=== PATIENT | female | born 1995 | race Caucasian/White ===

== ENCOUNTER → 2021-02-10 11:00 | Outpatient (CLI) | payer OTHER, SELFPAY ==
[2021-02-13 03:07] LABS: Chlamydia By Nucleic Acid AMP Negative (Negative)
[2021-02-13 12:40] LABS: Gonococcus By Nucleic Acid AMP Negative (Negative)
== END ==
PROVIDERS: Visit Provider Obstetrics & Gynecology
DX: Z32.01 Encounter for pregnancy test, result positive (principal)
CPT/HCPCS: 87491; 87591

== ENCOUNTER → 2021-02-16 14:53 | Outpatient (CLI) | payer OTHER, SELFPAY ==
[2021-02-16 15:51] LABS: Color, Urine Yellow (Yellow); Glucose, Dipstick Normal (Normal); Ketone-Dipstick Negative (Negative); Leukocyte Esterase-Dipstick Negative /ul (Negative); Nitrite-Dipstick Negative (Negative); Occult Blood-Urine Negative /ul (Negative); Protein-Dipstick Negative (Negative); Specific Gravity, Urine 1.015 (1.002-1.030); Urine Bilirubin Dipstick Negative (Negative); Urine Clarity Sl. Cloudy (Clear); Urine Urobilinogen Normal (Normal)
[2021-02-16 15:53] LABS: Absolute Lymphocyte Count 1.95 X10^3/uL (0.83-4.51); Absolute Neutrophil Count 7.5 X10^3/uL (2.0-7.7); Basophil# 0.04 X10^3/uL; Basophil% 0.4 % (0-1); Eosinophil# 0.14 X10^3/uL; Eosinophils% 1.4 % (0-5); Hemoglobin 14.1 g/dL (12.0-15.0); Lymphocyte # 1.95 X10^3/ul (0.83-4.51); Lymphocyte % 18.9 % (19-41); Mean Corp Hgb Conc 33.6 g/dL (32-36); Mean Corpuscular Hgb 30.1 pg (27.0-32.0); Mean Corpuscular Volume 89.7 fL (81-99); Mean Platelet Vol. 10.6 fl (6.2-12.0); Monocyte# 0.64 X10^3/uL; Monocyte% 6.2 % (0-10); NRBC Flagged by Analyzer 0 % (0-5); Neutrophil # 7.53 X10^3/uL (2.7-7.7); Neutrophil % 72.9 % (47-70); Platelet Count 214 K/mm3 (150-450); RBC Distribution Width SD 39.2 fl (35.1-43.9); Red Blood Count 4.68 M/mm3 (4.2-5.4); White Blood Count 10.3 K/mm3 (4.4-11.0)
[2021-02-17 10:33] LABS: HIV - WCH Non-Reactive (Nonreactive); Hepatitis B Surface Antigen Non-Reactive (Nonreactive); Hepatitis C Antibody Non-Reactive (Nonreactive); Rubella IgG Reactive (Nonreactive); Syphilis Antibodies Non-reactive
== END ==
PROVIDERS: Visit Provider Obstetrics & Gynecology
DX: Z34.81 Encounter for supervision of other normal pregnancy, first trimester (principal)
CPT/HCPCS: 36415; 81002; 84443; 85025; 86703; 86762; 86780; 86803; 87340

== ENCOUNTER → 2021-08-11 09:30 | Outpatient (CLI) | payer OTHER, SELFPAY | PROVIDERS: Visit Provider Obstetrics & Gynecology | DX: Z36.85 Encounter for antenatal screening for Streptococcus B (principal) | CPT/HCPCS: 87081 ==

== ENCOUNTER 2021-09-07 17:50 | Inpatient (IN) | payer SELFPAY, OTHER ==
[2021-09-07] VITALS (10 sets, daily range): BP systolic 108–129; BP diastolic 62–88; PULSE 63–87; TEMP 35.9–36.3; O2SAT 97–99; BMI 30.4
[2021-09-07 17:30] LABS: ROM Internal Control Test YES-OK TO RESULT pt. (Internal QC); ROM Patient Test POSITIVE (Negative)
[2021-09-07] MEDS: Lactated Ringers 1,000 ML 50 ML IV (18:05)
[2021-09-07 18:19] LABS: Absolute Lymphocyte Count 1.75 X10^3/uL (0.83-4.51); Absolute Neutrophil Count 10.6 X10^3/uL (2.0-7.7); Basophil# 0.03 X10^3/uL; Basophil% 0.2 % (0-1); Eosinophil# 0.13 X10^3/uL; Hematocrit 39.9 % (37-47); Hemoglobin 13.7 g/dL (12.0-15.0); Lymphocyte # 1.75 X10^3/ul (0.83-4.51); Mean Corp Hgb Conc 34.3 g/dL (32-36); Mean Corpuscular Hgb 32.1 pg (27.0-32.0); Mean Corpuscular Volume 93.4 fL (81-99); Mean Platelet Vol. 10.2 fl (6.2-12.0); Monocyte# 0.89 X10^3/uL; Monocyte% 6.6 % (0-10); NRBC Flagged by Analyzer 0 % (0-5); Neutrophil # 10.57 X10^3/uL (2.7-7.7); Neutrophil % 78.9 % (47-70); Platelet Count 259 K/mm3 (150-450); RBC Distribution Width CV 12.4 % (11.6-14.6); RBC Distribution Width SD 42.6 fl (35.1-43.9); Red Blood Count 4.27 M/mm3 (4.2-5.4); White Blood Count 13.4 K/mm3 (4.4-11.0)
--- NOTE | 2021-09-07 20:14 | HP.PCM.OB_ITS ---
History and Physical Date of Admission: 09/07/21 HPI: 26 yo at 40/3w, HARLAN 09/04/21 by LMP consistent with 11w US, admitted for spontaneous rupture of membranes. Patient reports leaking of fluid at 1445 this afternoon. States that contractions are becoming stronger and closer together. Denies vaginal bleeding. Reports movement. Denies headache, vision changes, chest pain, shortness of breath, nausea or vomiting, diarrhea constipation, fevers or chills. complicated by: Prior section at 37 weeks for severe preeclampsia nonreassuring heart tones POLICY SERVICES REPRESENTATIVE History: G1:2018 10w SAB G2: 2019 37w c/s G3: current Medical history: Denies Surgical history: section, umbilical hernia repair Allergies: No known drug allergies Family history: Noncontributory Medications: PNV Social history: Denies tobacco, alcohol, drug use Review of systems: Negative otherwise stated above Physical exam Vitals: Blood pressure 116/71//pulse 63 //temperature 97.1 ?F //oxygen saturation 98% on room air General: Patient is no acute distress standing at bedside HEENT: Normocephalic/atraumatic, PERRLA Cardiorespiratory: No increased effort, regular heart rate Abdomen: Soft, nontender, gravid Extremities: Minimal edema Cervical exam: 2 cm per RN Neurologic: Cranial nerves II through XII grossly intact Musculoskeletal: Movement and strength 5 out of 5 throughout panel: Blood type a positive HIV/hepatitis C/hepatitis B negative/negative/negative Rubella immune GBS negative on 08/11/2021 Gonorrhea/chlamydia negative CBC: WBC 13.4/hemoglobin 13.7/hematocrit 32.1/platelets 259 Assessment/plan: 26 yo at 40/3w, HARLAN 09/04/21 by LMP consistent with 11w US, admitted for spontaneous rupture of membranes. complicated by: Prior section at 37 weeks for severe preeclampsia nonreassuring heart tones * Patient desires trial of labor after section. All risk, benefits, alternatives discussed with patient. Discussed options for section. Discussed risks of surgery including but not limited to: Risk of bleeding to the point transfusion, infection, injury to surrounding tissue including bowel/bladder/major vessels, VTE, ICU admission. Discussed outcomes of vaginal . Discussed risk of uterine rupture which is less than 1% however if this were to happen there are several risks to herself and baby including but not limited to: Risk of hemorrhage, hysterectomy, risk of and neurologic damage. Patient aware and consented. * GBS negative * Expectant management at this time. Will augment with Pitocin if needed. Assessment & Plan Assessment/Plan (1) Spontaneous rupture of membranes: (2) History of section: (3) Desires (vaginal after ) trial:
[2021-09-07] MEDS: Oxytocin 30 units/NS 500 ml 30 UNITS/500 ML IV.SOLN IV (22:06)
[2021-09-08] VITALS (91 sets, daily range): BP systolic 83–124; BP diastolic 47–81; PULSE 54–214; RESP 16; TEMP 36.1–36.5; O2SAT 82–100
[2021-09-08] MEDS: Lactated Ringers 500 ML 999 ML IV ×3 (01:00→05:27)
[2021-09-08] MEDS: fentaNYL-bupivacaine (epidural) 100 ML BAG EPIDURAL ×2 (01:55→06:15)
[2021-09-08] MEDS: Terbutaline 1 MG/ML Vial 0.25 MG SC (03:29)
--- NOTE | 2021-09-08 04:10 | PN_ITS ---
Progress Note Patient seen and examined. Recurrent late decelerations after epidural placement and hypotension - had been given ephendrine and LR bolus. PT on hands and knees. 6 cm per RN. Terbutaline given. Resolution of decelerations. FHR 135/mod harriet/+accel/no decel [place] q4-5 min. Continue expectant management. Will consider restarting pitocin in approximately 1 hour if FHR continues to be reassuring. Discussed possibility of section for intolerance of labor if decelerations recur. All questions answered.
[2021-09-08] MEDS: Lactated Ringers 1,000 ML 200 ML IV (06:06)
[2021-09-08] MEDS: Oxytocin 30 units/NS 500 ml 30 UNITS/500 ML IV.SOLN 334 UNITS IV (12:03)
--- NOTE | 2021-09-08 14:00 | EX.PCM.OBRPT ---
Assessment & Plan (1) (vaginal after ): (2) : Vaginal Delivery Maternal Presentation Maternal Presentation: Spontaneous Rupture of Membranes Type of Induction: Pitocin Medical Reason for Induction: Premature Rupture of Membranes Operative Information Date of Procedure: 09/08/21 Pre-Operative Diagnosis: 40 4/7 weeks gestation Previous section TOLAC Post-Operative Diagnosis: 40 4/7 weeks gestation Previous section TOLAC Surgery / Procedure Performed: Vacuum Assisted Vaginal Delivery Type of Anesthesia: Epidural Drain: Mead to straight drain Estimated Blood Loss: 300 ml Findings Description of Procedure: Arrived to bedside and patient FD+3, pushing to +4 station. OA. Deepening variable decelerations with reduced variability occurred with contractions and expulsive efforts followed by bradycardia to 60s bpm. I advised vacuum assistance with review of maternal and risks, benefits. Patient agreed to proceed. The Kiwi cap was placed at the flexion point and 500mmHg suction applied. The head delivered in OA over 4 pulls. There were no pop offs. The Kiwi suction was released. Infant shoulders and body delivered with ease to reveal a male infant. He was placed on the maternal abdomen and further attended by nursery personnel. The cord was doubly clamped and cut at approximatley 5 minutes of life. Cord gases were obtained. The placenta delivered spontaneously and appeared intact on inspection. A vaginal laceration with left labial extension was repaired with 3-0 Vicryl Rapide. The superficial portion of the left labial laceration was well approximated spontaneously thus further repair deferred. Right labial laceration and a periurethral laceration were repaired with 3-0 Vicryl Rapide with hemostasis attained. Sponge and needle counts were correct x 2. Presentation: Vertex Time of Membrane Rupture: 1445h 09/07/21 Amniotic Fluid Description: Clear Placental Delivery Description: Spontaneous Placenta Disposition: [facility] Cord Vessel Description: 3 Vessels Cord Entanglement: None Cord Gases: ABG and VBG A Gender: Male (1 minute): 8 (5 minute): 9 Delayed Cord Clamping: Yes Post Vaginal Delivery Medications Given After Delivery: IV Pitocin Episiotomy Description: None Laceration: Midline and Vaginal Extension/lac Complication Complications: None
[2021-09-09] VITALS (8 sets, daily range): BP systolic 110–130; BP diastolic 68–76; PULSE 72–85; RESP 16; TEMP 36–36.6; O2SAT 95–98
--- NOTE | 2021-09-09 01:42 | NURSING ---
Bladder scanned for >810. pt assisted to restroom, unable to void. assisted back to bed. fundus 3 above umbilicus and bladder distended. straight cathed for 1250cc clear pale yellow urine-tolerated well. fundus palpated after straight cath-firm, midline, and at umbilicus. lochia scant. Pt instructed to void into hat and call RN after urination to ensure she is empting bladder. pt verbalized understanding
--- NOTE | 2021-09-09 07:37 | PCM.PN.OB ---
Subjective Subjective Patient without complaints. Breast-feeding going well. Minimal vaginal bleeding reported. Wants to go home today if baby is able to go. Objective Data Objective Data Vital Signs: Vital Signs Temp Pulse Resp BP Pulse Ox 96.8 F L 72 16 116/69 97 09/09/21 05:20 09/09/21 05:20 09/09/21 05:20 09/09/21 05:20 09/09/21 05:20 Oxygen Delivery Method Room Air Weight: 171 lb 8.314 oz Body Mass Index (BMI) 30.4 Intake & Output: Intake and Output for Last 24 Hours 09/07/21 09/08/21 09/09/21 23:59 23:59 23:59 Intake Total 753.6 / 753.6 4601.64 / 4601.64 Output Total 1050 / 1050 3500 / 3500 1650 / 1650 Balance -296.4 / -296.4 1101.64 / 1101.64 -1650 / -1650 Lab / Micro Data Result Diagrams: 09/07/21 18:05 Micro: Microbiology 09/07/21 17:29 Nasal Secretion SARS-CoV-2 Antigen (Rapid) - Final Assessment & Plan (1) (vaginal after ): PLAN: Doing well day #1 status post routine spontaneous vaginal delivery and . Will discharge to home later today with routine instructions if baby is able to go.
--- NOTE | 2021-09-09 07:38 | PCM.DC ---
Discharge Instructions Diet Discharge Diet: No restrictions Activity Discharge Activity: May Drive (In 1 to 2 days if not taking narcotic pain medication), May Shower and May Take a Tub Bath May resume sexual activity in: 4-6 weeks Additional Activity Instructions:: Nothing in the vagina for 4-6 weeks. You may return to work/school in 6 weeks. Dressing / Incision Call your doctor if you observe: Fever of 101 or Higher, Inability to urinate, Inability to have a bowel movement and Using more than 1 pad per hour Follow Up Care Please Follow Up With: Manuel Lucas MD When: Call [phone] to make an appointment with your doctor in 6 weeks. Test Results: Test results from this visit will be discussed in further detail at your follow-up appointment, if applicable. Discharge Plan Admission Admit Date/Time: 09/07/21 17:50 Primary Reason for Your Visit: Vaginal Delivery Attending Provider: Ban Benitez Primary Care Provider: Care Physician,Ainsley Primary Discharge Orders/Prescriptions Prescriptions: No Action Prenatabs FA 29-1 mg Tablet 1 tab PO DAILY RF: 0 Referrals / Follow Up: Care Physician,No Primary [Primary Care Provider] - Disposition Disposition (needs filled in before D/C Order can be placed): Home, Self Care
== END 2021-09-09 16:50 | disposition home or self-care (01) | DRG 807 ==
LOC: WPOUT 18:04 → WP 18:04
PROVIDERS: Student in an Organized Health Care Education/Training Program; Admitting Provider Obstetrics & Gynecology; Visit Provider Obstetrics & Gynecology
DX: O76 Abnormality in fetal heart rate and rhythm complicating labor and delivery (principal); Z37.0 Single live birth; O34.219 Maternal care for unspecified type scar from previous cesarean delivery; Z3A.40 40 weeks gestation of pregnancy; O70.0 First degree perineal laceration during delivery
CPT/HCPCS: 59025; 59050; 84112; 85025; 86850; 86900; 86901; 87426; 99218; J7120; G0378

== ENCOUNTER 2021-10-13 11:30 | Outpatient (CLI) | payer OTHER, SELFPAY ==
[2021-10-17 16:22] LABS: HPV Reflexed? NOT INDICATED
== END 2021-10-13 23:59 | disposition short-term general hospital (02) ==
LOC: LABSPEC 10-14 08:58
PROVIDERS: Visit Provider Obstetrics & Gynecology
DX: Z12.4 Encounter for screening for malignant neoplasm of cervix (principal)
CPT/HCPCS: 88175; G0145

== ENCOUNTER → 2022-08-12 | Outpatient (CLI) | payer OTHER, SELFPAY ==
[2022-08-12 16:37] LABS: Absolute Lymphocyte Count 2.05 X10^3/uL (0.83-4.51); Absolute Neutrophil Count 5.9 X10^3/uL (2.0-7.7); Basophil# 0.04 X10^3/uL; Basophil% 0.5 % (0-1); Eosinophils% 1.2 % (0-5); Hematocrit 42.5 % (37-47); Hemoglobin 14.5 g/dL (12.0-15.0); Lymphocyte # 2.05 X10^3/ul (0.83-4.51); Lymphocyte % 23.9 % (19-41); Mean Corp Hgb Conc 34.1 g/dL (32-36); Mean Corpuscular Hgb 30.9 pg (27.0-32.0); Mean Corpuscular Volume 90.6 fL (81-99); Mean Platelet Vol. 9.6 fl (6.2-12.0); Monocyte# 0.47 X10^3/uL; Monocyte% 5.5 % (0-10); NRBC Flagged by Analyzer 0 % (0-5); Neutrophil # 5.89 X10^3/uL (2.7-7.7); Neutrophil % 68.7 % (47-70); Platelet Count 284 K/mm3 (150-450); RBC Distribution Width CV 11.9 % (11.6-14.6); Red Blood Count 4.69 M/mm3 (4.2-5.4); White Blood Count 8.6 K/mm3 (4.4-11.0)
[2022-08-13 09:42] LABS: HIV - WCH Non-Reactive (Nonreactive); Hepatitis B Surface Antigen Non-Reactive (Nonreactive); Hepatitis C Antibody Non-Reactive (Nonreactive); Rubella IgG Reactive (Nonreactive); Syphilis Antibodies Non-reactive
[2022-08-15 10:28] LABS: V-Zoster IgG (Immunity) 1130 index (Immune >165)
[2022-08-16 21:07] LABS: Chlamydia By Nucleic Acid AMP Negative (Negative)
[2022-08-17 14:17] LABS: Gonococcus By Nucleic Acid AMP Negative (Negative)
== END | disposition home or self-care (01) ==
LOC: WOBLAB 16:19
PROVIDERS: Visit Provider Student in an Organized Health Care Education/Training Program
DX: Z34.81 Encounter for supervision of other normal pregnancy, first trimester (principal)
CPT/HCPCS: 36415; 85025; 86703; 86762; 86780; 86787; 86803; 87086; 87340; 87491; 87591